=== PATIENT | male | born 1995 | race Caucasian/White ===

== ENCOUNTER 2020-10-11 16:25 | Emergency (ER) | payer BC ==
[2020-10-12 02:28] LABS: SARS-CoV-2 PCR by NAA Not Detected (NotDetected)
== END 2020-10-11 16:50 | disposition home or self-care (01) ==
LOC: ERS 16:25
DX: R05 Cough (principal); Z20.822 Contact with and (suspected) exposure to COVID-19
CPT/HCPCS: 87635; 99283; U0003; U0005